=== PATIENT | male | born 1970 | race Two or more races ===

== ENCOUNTER 2024-05-06 14:23 | Emergency (ER) | payer MEDICAID, SELFPAY ==
[2024-05-06 14:38] VITALS: BP 146/89; PULSE 106; RESP 18; TEMP 37.4; O2SAT 96; BMI 30.7
--- NOTE | 2024-05-06 14:49 | XR_ITS ---
Examination: CT brain head without contrast. 2-D sagittal coronal reconstructions Date and time of exam:May 06, 2024 1455 hours INDICATIONS: Patient fell 4 days ago with injury to the head after syncopal episode head pain CTDI: vol (mGy):3.8 DLP: (mGycm):1127 Technique: Multiple CT axial sections of the brain have been obtained, 5 mm slice thickness. Contrast has not been administered. 2-D sagittal, coronal reconstructions have been obtained Low dose protocols were performed. One or more of the following dose reduction techniques were used; automated exposure control, adjustment of the mA and/or KV according to patient size, use of iterative reconstruction technique. Findings: No significant ventricular enlargement. Intra-axial or extra-axial hemorrhage density is not seen. No mass effect or midline shift Basal cisterns are not remarkable. Fourth ventricle is midline. Cranial vault intact. Impression: Negative for acute hemorrhage, mass effect or midline shift
--- NOTE | 2024-05-06 15:22 | PD.EDHA ---
ED Headache RME/HPI General Chief Complaint: Headache Stated Complaint: HIT FACE ON GLASS DOOR 6 DAYS AGO Time Seen by Provider: 05/06/24 14:33 Arrival date/time: 05/06/24 14:23 53-year-old male presents to the emergency department today stating that he hit his head and fell to the floor 6 days ago patient reports that he was walking and accidentally walked into the door. Patient reports he was not dizzy or having any chest pain prior to the fall patient reports fall was mechanical Limitations: no limitations Related Data Previous Rx's ?Medication ?Instructions ?Recorded ibuprofen 600 mg tablet 600 mg PO Q8H PRN pain #20 tabs 03/12/24 cyclobenzaprine 10 mg tablet 10 mg PO TID PRN muscle spasm 10 05/06/24 days #30 tab-caps ibuprofen 800 mg tablet 800 mg PO TID PRN pain #30 tabs 05/06/24 Allergies Allergy/AdvReac Type Severity Reaction Status Date / Time NKA* Allergy Uncoded 05/06/24 14:30 Review of Systems Review of Systems Systems Reviewed: All systems reviewed, normal except as documented Constitutional Constitutional: Reports system reviewed and no additional complaints, except as documented, Denies fever(s) and Reports headache(s) Eyes Eyes: Reports system reviewed and no additional complaints, except as documented and Denies blurry vision ENT Ears, Nose, Mouth, and Throat: Reports system reviewed and no additional complaints, except as documented, Reports headache(s), Denies nasal congestion and Denies nasal discharge Cardiovascular Cardiovascular: Reports system reviewed and no additional complaints, except as documented, Denies chest pain and Denies dyspnea Respiratory Respiratory: Reports system reviewed and no additional complaints, except as documented, Denies chest congestion, Denies cough and Denies dyspnea Gastrointestinal Gastrointestinal: Reports system reviewed and no additional complaints, except as documented and Denies abdominal pain Integumentary/Breasts Skin/Breast: Reports system reviewed and no additional complaints, except as documented and Denies rash Neurologic Neurologic: Reports system reviewed and no additional complaints, except as documented, Reports as per HPI and Reports headache(s) Past Medical History Social History SMOKING STATUS: Never smoker ED Exam General Limitations: Present no limitations General appearance: Present alert and in no apparent distress Head Head exam: Present atraumatic Eye Eye exam: Present normal appearance, PERRL and EOMI ENT ENT exam: Present normal exam, normal oropharynx and mucous membranes moist Neck Neck exam: Present normal inspection, full ROM and trachea midline Chest Chest inspection: Present normal inspection and symmetric chest wall rise Respiratory Respiratory exam: Present normal lung sounds bilaterally Cardiovascular Cardiovascular exam: Present regular rate, normal rhythm and normal heart sounds Abdominal Exam Abdominal exam: Present soft and normal bowel sounds Extremities Exam Extremities exam: Present normal inspection and full ROM Back Exam Back exam: Present normal inspection and full ROM Neurological Exam Neurological exam: Present alert, oriented X3 and CN II-XII intact Psychiatric Psychiatric exam: Present normal affect and normal mood Skin Skin exam: Present warm, dry, intact and normal color Course Quality Measures none Orders Category Date Time Status CT head/brain wo con Stat Exams 05/06/24 14:49 Completed Vital Signs Vital signs: Vital Signs Temperature 99.3 F 05/06/24 14:38 Pulse Rate 106 H 05/06/24 14:38 Respiratory Rate 18 05/06/24 14:38 Blood Pressure 146/89 H 05/06/24 14:38 Pulse Oximetry (%) 96 05/06/24 14:38 Oxygen Delivery Method Room Air 05/06/24 14:38 o2 sat 96% r/a wnl Headache MDM Narrative MDM Narrative:: 53-year-old male presents to the emergency department today stating that he hit his head and fell to the floor 6 days ago patient reports that he was walking and accidentally walked into the door. Patient reports he was not dizzy or having any chest pain prior to the fall patient reports fall was mechanical On exam patient walks with steady gait patient has no abnormal neurological findings CT scan of the head obtained no acute emergent findings noted Patient discharged home in no distress to follow-up with primary care doctor in the next 24 to 48 hours and for any worsening symptoms to return to the ER immediately Patient data External records reviewed:: [facility] previous records Clinical information provided by:: patient Social determinants that could affect healthcare access:: none Patient has the following chronic illnesses:: See history How is presenting disease/condition affected by chronic disease/condition?: uneffected by Evaluation data The following diagnostics were reviewed and interpreted by me:: radiology exam(s) Lab and/or radiology exams considered but not ordered:: Radiology obtain Interpretation Summary: Reviewed by me Medications / Prescriptions Medications or Prescriptions considered but not ordered:: Given Medication administrations:: Given Consultations Consultation(s) initiated? (list below): No Diagnosis Differential diagnosis headache: migraine, tension headache and postconcussion syndrome Most likely diagnosis given after review of the tests above:: Closed head injury Admission Indicated Admission indicated?: not indicated Admission Request Was there a request for admission?: No Disposition Plan Disposition Plan: Discharge Discharge Attestation Discharge Attestation: The patient and all family members were given an opportunity to ask questions and understood the discharge instructions. Discharge instructions specifically effects, indications for sooner follow up or return to the emergency department, and the expected course of current diagnosis. Patient condition: Stable Discharge Plan Plan Patient Disposition: HOME (Self Care) Disposition Comment: stable Prescriptions/Referrals Prescriptions/Med Rec: New cyclobenzaprine 10 mg tablet 10 mg PO TID PRN (Reason: muscle spasm) 10 Days Qty: 30 0RF ibuprofen 800 mg tablet 800 mg PO TID PRN (Reason: pain) Qty: 30 0RF No Action ibuprofen 600 mg tablet 600 mg PO Q8H PRN (Reason: pain) Qty: 20 0RF Problem List Clinical Impression: Headache Patient/Caregiver Discharge Instructions Education Materials: Self-Care for Headaches Additional Instructions: Please follow up with your primary care doctor in the next 24-48hrs for any worsening symptoms return here immediately Print Language: Chinese Stand Alone Forms: Nissa Award Info., Patient Portal Info Letter PA/YING Supervising Physician VALERIY/YING Supervising Physician: dr calles
== END 2024-05-06 15:33 | disposition home or self-care (01) ==
LOC: SERX 15:39
PROVIDERS: Emergency Provider Emergency Medicine; PCP Physician Assistant
DX: R51.9 Headache, unspecified (principal)
CPT/HCPCS: 70450; 99284

== ENCOUNTER 2025-04-15 13:06 | Emergency (ER) | payer MEDICAID, SELFPAY ==
--- NOTE | 2025-04-15 13:34 | XR_ITS ---
Examination: Duplex scan of the lower extremity, unilateral left Date and time of exam: April 15, 2025, 1440 hours INDICATIONS: Left leg swelling and pain beginning 4 days ago Technique: Duplex scan of the extremity veins using B-mode/grayscale imaging and Doppler spectral analysis and color flow Attention is directed to internal echogenicity, compression and augmentation involving these veins, color flow assessment, spectral analysis Findings: Positive for occlusive thrombus involving the left peroneal and left posterior tibial veins IMPRESSION: Positive for acute occlusive DVT involving the left peroneal and left posterior tibial veins
[2025-04-15 13:51] VITALS: BP 131/86; PULSE 76; RESP 20; TEMP 37.2; O2SAT 97
--- NOTE | 2025-04-15 16:20 | EDNOTE_ITS ---
ED Extremity Problem RME/HPI General Chief complaint: Extremity Injury, Lower Stated complaint: LT CALF PAIN AND SWELLING X5 DAYS, SNT R/O DVT Time Seen by Provider: 04/15/25 14:06 Arrival date/time: 04/15/25 13:06 RME / HPI RME / HPI Narrative: DR. SAUCEDO MAIN ED EVALUATION, 1620h: 54 year old male with no stated chronic medical history presents to the ED for evaluation of worsening left calf pain beginning 1 week ago. Accompanied by calf swelling. No other symptoms or complaints. Denies chest pain or shortness of breath. No recent trauma or injury. Related Data Previous Rx's ?Medication ?Instructions ?Recorded rivaroxaban 15 mg tablet (Xarelto) 15 mg PO BID 21 day s #42 tabs 04/15/25 rivaroxaban 20 mg tablet (Xarelto) 20 mg PO QDAY DVT # 7 tabs 04/15/25 Allergies Allergy/AdvReac Type Severity Reaction Status Date / Time NKA* Allergy Uncoded 05/06/24 14:30 Review of Systems Review of Systems Systems Reviewed: All systems reviewed, normal except as documented Past Medical History Social History SMOKING STATUS: Never smoker ED Exam Narrative Physical exam: Constitutional: Awake, alert, nontoxic, no acute distress HEENT: Normocephalic, atraumatic, extraocular movements intact. Neck: Supple CV: Regular rate and rhythm, no murmurs/rubs/gallops Lungs: Clear to auscultation BL, no respiratory distress. Extremities: No deformities, trace pedal edema left lower extremity, left posterior calf tenderness to palpation Skin: Warm, dry, intact Course Quality Measures none Orders Category Date Time Status US venous doppler LE LT Stat Exams 04/15/25 13:34 Completed Rivaroxaban [Xarelto] Med 04/15/25 16:45 Discontinued 15 mg PO X1 Rivaroxaban [Xarelto] Med 04/15/25 17:00 Active 15 mg PO X1 Vital Signs Vital signs: Vital Signs Temperature 98.9 F 04/15/25 13:51 Pulse Rate 76 04/15/25 13:51 Respiratory Rate 20 04/15/25 13:51 Blood Pressure 131/86 H 04/15/25 13:51 Pulse Oximetry (%) 97 04/15/25 13:51 Oxygen Delivery Method Room Air 04/15/25 13:51 Pulse ox is 97% on room air which is adequate. Extremity Problem MDM Narrative MDM Narrative:: Ginny Gill am scribing for and in the presence of Dr. Saucedo. Patient data External records reviewed:: [facility] previous records Clinical information provided by:: patient Social determinants that could affect healthcare access:: none Patient has the following chronic illnesses:: None reported How is presenting disease/condition affected by chronic disease/condition?: no chronic disease Evaluation data The following diagnostics were reviewed and interpreted by me:: lab results and radiology exam(s) Lab and/or radiology exams considered but not ordered:: None Interpretation Summary: Ordering Physician: Arline Saucedo MD Date of Service: 04/15/25 Procedure(s): US venous doppler LE LT Accession Number(s): [id number] cc: Darin Jones MD; Arline Saucedo MD~ Examination: Duplex scan of the lower extremity, unilateral left Date and time of exam: April 15, 2025, 1440 hours INDICATIONS: Left leg swelling and pain beginning 4 days ago Technique: Duplex scan of the extremity veins using B-mode/grayscale imaging and Doppler spectral analysis and color flow Attention is directed to internal echogenicity, compression and augmentation involving these veins, color flow assessment, spectral analysis Findings: Positive for occlusive thrombus involving the left peroneal and left posterior tibial veins IMPRESSION: Positive for acute occlusive DVT involving the left peroneal and left posterior tibial veins Dictated By: Darin Jones MD Signed By: <Electronically signed by Darin Jones MD in OV> 04/15/25 1514 Medications / Prescriptions Medications or Prescriptions considered but not ordered:: None Medication administrations:: Medication Administration History Rivaroxaban 10 mg/ Rivaroxaban (5 mg) 15 mg PO X1 [facility] Stop: 05/06/25 16:59 Discontinued Medications Rivaroxaban (Rivaroxaban 10 Mg Tablet) 15 mg PO X1 MAL Stop: 05/06/25 16:44 See above Consultations Consultation(s) initiated? (list below): No Diagnosis Extremity Problem Differential Diagnosis: gout, cellulitis, lower extremity edema and deep vein thrombosis of lower extremity Most likely diagnosis given after review of the tests above:: DVT Admission Indicated Admission indicated?: not indicated Explain why admission is indicated or not indicated:: With no condition needing emergent intervention, there was no indication for admission. Admission Request Was there a request for admission?: No Disposition Plan Disposition Plan: Discharge Discharge Attestation Discharge Attestation: The patient and all family members were given an opportunity to ask questions and understood the discharge instructions. Discharge instructions specifically effects, indications for sooner follow up or return to the emergency department, and the expected course of current diagnosis. Patient condition: Stable Discharge Plan Plan Patient Disposition: HOME (Self Care) Patient condition on transfer: Stable Prescriptions/Referrals Prescriptions/Med Rec: New Xarelto 15 mg tablet 15 mg PO BID 21 Days Qty: 42 0RF Rx Instructions: must administer with evening meal. Xarelto 20 mg tablet 20 mg PO QDAY Qty: 7 0RF Rx Instructions: must administer with evening meal Discontinued ibuprofen 600 mg tablet 600 mg PO Q8H PRN (Reason: pain) Qty: 20 0RF ibuprofen 800 mg tablet 800 mg PO TID PRN (Reason: pain) Qty: 30 0RF Referrals: No Primary/Family,Physician [Primary Care Provider] - In 1 week Problem List Clinical Impression: DVT (deep venous thrombosis) Patient/Caregiver Discharge Instructions Education Materials: Preventing Deep Vein Thrombosis, Compression Stockings Steps, ED Deep Vein Thrombosis (DVT) Additional Instructions: Algunos principios generales de madhavi que pueden ayudarte son los principios de ADELANTE: Agua: (beber suficiente agua fresca para mantenerse hidratado, priorizando el agua en lugar de refrescos, caf?, t?, jugos, etc.). [place] (descansar adecuadamente por la noche, acostarse unas horas antes de la medianoche y evitar las pantallas, la televisi?n y la m?jen coleman dianne antes de acostarse, as? elsi las comidas pesadas dianne antes de acostarse). Ejercicio: (ejercicio/caminatas diarias seg?n la tolerancia). Darcie solar: (exponer la piel al ildefonso sarai 15-20 minutos aproximadamente, temprano por la ma?cady y al atardecer, para obtener los beneficios de la vitamina D). Aire (ejercicios de respiraci?n profunda temprano por la ma?cady al aire colton). Nutricion: (consumir michelle dieta a base de plantas, evitar las jerardo en general y los alimentos altamente procesados). Templanza (evitar el alcohol, las drogas il?citas, las bebidas con cafe?na, fumar, etc.). Angella en Kt (dedicar tiempo diariamente al estudio b?blico y la oraci?n: la contemplaci?n tiene beneficios para la madhavi). Recursos adicionales que pueden ser ?juan c: [email or web address], consulte la secci?n de recursos y seminarios. Print Language: Croatian Stand Alone Forms: Nissa Award Info., Patient Portal Info Letter
[2025-04-15] MEDS: RIVAROXABAN 10 MG TABLET 15 MG PO (18:37)
== END 2025-04-15 18:41 | disposition home or self-care (01) ==
PROVIDERS: Emergency Provider Family Medicine
DX: I82.452 Acute embolism and thrombosis of left peroneal vein (principal); I82.432 Acute embolism and thrombosis of left popliteal vein
CPT/HCPCS: 93971; 99282; A9270